=== PATIENT | male | born 1995 | race African-American/Black ===

== ENCOUNTER 2020-03-21 15:55 | Emergency (ER) | payer OTHER ==
[~2020-03-21] VITALS: Ht 175.3 cm; Wt 87.1 kg
[2020-03-21 15:55] VITALS: BP 151/94
== END 2020-03-21 16:34 | disposition left against medical advice (07) ==
LOC: ER 15:55
DX: F41.9 Anxiety disorder, unspecified (principal); R00.2 Palpitations
CPT/HCPCS: 93005